=== PATIENT | male | born 1945 | race Caucasian/White ===

== ENCOUNTER 2016-09-03 11:48 | Inpatient (IN) ==
[2016-09-03] MEDS ORDERED: Acetaminophen 325 MG TABLET PO PRN (13:24)
[2016-09-03] MEDS ORDERED: Gabapentin 300 MG CAPSULE PO PRN (13:24)
[2016-09-03] MEDS ORDERED: Dextrose Gel 15 GM PO PRN ×2 (15:40)
[2016-09-03] MEDS: *HR* OxyCODONE/APAP 5/325 TABLET PO PRN ×2 (15:45→22:39)
[2016-09-03] MEDS ORDERED: Gentamicin OPTH Soln 5 ML BOTTLE RIGHT EYE SCH (17:00)
[2016-09-03] MEDS ORDERED: PRAVASTATIN SODIUM 10 MG PO SCH (21:00)
[2016-09-03] MEDS: *HR* GlyBURIDE 5 MG TABLET PO SCH (22:24)
[2016-09-03] MEDS: Cefdinir 300 MG CAPSULE PO SCH (22:25)
[2016-09-03] MEDS: Insulin DETEMIR 100 UNIT/ML X5UNITS SQ SCH (22:28)
[2016-09-04 06:56] LABS: Basophils % 0.7 %; Eosinophils # 0.3 K/mcL (0.0-0.6); Eosinophils % 4.9 %; Hematocrit 27.1 % (37.5-50.1); Hemoglobin 8.7 g/dL (12.9-16.9); Immature Granulocytes % 1.4 % (0-4); Lymphocytes # 0.9 K/mcL (0.6-4.6); Lymphocytes % 15.9 %; Mean Corpuscular HGB Conc 32.1 g/dL (31.6-35.5); Mean Corpuscular Hemoglobin 28.5 pg (28.0-33.3); Mean Corpuscular Volume 88.9 fL (83.0-100.0); Mean Platelet Volume 8.9 fL (9.4-12.4); Monocytes # 0.7 K/mcL (0.0-1.3); Monocytes % 11.6 %; Neutrophils # 3.7 K/mcL (1.6-8.9); Platelet Count 103 K/mcL (140-400); Red Blood Count 3.05 M/mcL (4.19-5.50); Red Cell Distribution Width 13.9 % (11.5-14.5); Segmented Neutrophils % 65.5 %
[2016-09-04 07:06] LABS: INR 1.4; Prothrombin Time 15.3 Seconds (9.4-12.1)
[2016-09-04 07:08] LABS: Calcium 8.3 mg/dL (8.6-10.8); Potassium 4.2 mEq/L (3.5-4.5)
[2016-09-04 07:09] LABS: Activated Partial Thrombo Time 26.7 Seconds (26.0-36.0)
[2016-09-04] MEDS ORDERED: Furosemide 20 MG TABLET PO SCH ×2 (09:00→12:33)
[2016-09-04] MEDS ORDERED: Thiamine (B-1) 100 MG TABLET PO SCH (09:00)
[2016-09-04] MEDS: Cefdinir 300 MG CAPSULE PO SCH (09:29)
[2016-09-04] MEDS: Isosorbide MONOnitrate (24 HR) 30 MG TAB.ER.24H PO SCH (09:29)
[2016-09-04] MEDS: *HR* GlyBURIDE 5 MG TABLET PO SCH ×2 (09:30→19:48)
[2016-09-04] MEDS ORDERED: Albuterol 2.5 MG/3 ML NEBULIZER IH PRN (11:39)
--- NOTE | 2016-09-04 12:14 | Internal Med History&Physical ---
Date of Encounter: 09/04/16 Time of Encounter: 11:40 Assessment and Plan (1) Status post hernia repair Current visit: No Status: Acute Continue postop orders as at present. (2) Zinc deficiency Current visit: No Status: Acute We will check zinc level in a.m. (3) Anemia Current visit: No Status: Chronic Anemia testing done 08/09/2016 showed no factor deficiency. Qualifiers: Anemia type: B12 deficiency Vitamin B12 deficiency anemia type: unspecified B12 deficiency Qualified Code(s): D51.9 - Vitamin B12 deficiency anemia, unspecified (4) CKD (chronic kidney disease) stage 4, GFR 15-29 ml/min Current visit: No Status: Chronic Will monitor renal indices. (5) Gout Current visit: No Status: Chronic Uric acid level was elevated at 13.7 on 08/15/2016. Allopurinol was not ordered on discharge to [facility] swing bed. I will restart this Qualifiers: Gout site: unspecified site Gout etiology: unspecified cause Chronicity: chronic Presence of tophus: without tophus Qualified Code(s): M1A.9XX0 - Chronic gout, unspecified, without tophus (tophi) (6) Hypothyroid Current visit: No Status: Chronic TSH was normal at 1.999 on 03/31/2016. Continue Synthroid Qualifiers: Hypothyroidism type: unspecified Qualified Code(s): E03.9 - Hypothyroidism , unspecified (7) DM type 2 (diabetes mellitus, type 2) Current visit: No Status: Acute Hemoglobin A1c was 6.2% on 08/15/2016. Continue Levemir and glyburide. Qualifiers: Diabetes mellitus complication status: with kidney complications Diabetes mellitus complication detail: with chronic kidney disease Diabetes mellitus collar fuser insulin use: unspecified fci insulin use status Chronic kidney disease stage: stage 4 (severe) Qualified Code(s): E11.22 - Type 2 diabetes mellitus with diabetic chronic kidney disease; N18.4 - Chronic kidney disease, stage 4 (severe) Internal Medicine - H&P: HPI Chief complaint: Postop recovery Admitted From: Hospital to Hospital Transfer Plans for Post Hospital Care: Home History of present illness: Mr. Rivers is a 71 year old male who was hospitalized at [facility] August 29- after presenting to the emergency room there with complaints of increased testicular and scrotal swelling. He had undergone robotic inguinal hernia repair surgery by Dr. Tidwell on August 24. Dr. Tidwell was consulted but did not think there was significant surgical complications. The patient was admitted to [facility] for altered mental status and pain management. His mental status and swelling improved and he was transferred to [facility] swing bed for ongoing care needs. Past Med Surg Social Fam HX - Past Medical History Medical history: atrial fibrillation, cancer, CHF, CVA, diabetes, hyperlipidemia , hypertension, myocardial infarction, renal disease, other Psychiatric history: no psych history - Past Surgical History Surgical History: coronary bypass (CABG), other, pacemaker - Social History Smoking Status: Former smoker Smokeless Tobacco Status: No Alcohol use: none Drug use: none - Family History Father Living Status: Internal Medicine - H&P: Meds GlyBURIDE 5 mg PO BID 07/06/15 [History] Isosorbide MONOnitrate (24 HR) [Imdur] 30 mg PO DAILY 07/06/15 [History] Levothyroxine [Synthroid] 88 mcg PO DAILY 07/06/15 [History] Docusate Sodium [Dok] 100 mg PO BID PRN 03/27/16 [History] Insulin Glargine,Hum.rec.anlog [Lantus Solostar] 40 unit SQ HS PRN 03/27/16 [ History] Gabapentin [Neurontin] 300 mg PO TID PRN 06/15/16 [History] Pravastatin Sodium 10 mg PO HS 06/15/16 [History] Carvedilol 12.5 mg PO QDPC 08/24/16 [History] Furosemide [Lasix] 20 mg PO QAM 08/24/16 [History] Acetaminophen [Tylenol] 650 mg PO Q6HR PRN #0 tablet 09/03/16 [Rx] Cefdinir [Omnicef] 300 mg PO BID #8 capsule 09/03/16 [Rx] Gentamicin OPTH Soln 1 drop RIGHT EYE QID bottle 09/03/16 [Rx] Metolazone 2.5 mg PO DAILY 09/03/16 [History] OxyCODONE/APAP 5/325 [Percocet 5/325 MG] 1 tab PO Q6HR PRN #8 tablet 09/03/16 [ Rx] Thiamine (B-1) [Vitamin B-1] 100 mg PO DAILY tablet 09/03/16 [Rx] Allergies Filxdji-Nwf-Lvk Reductase Inhibitor [Statins] Adverse Reaction (Verified 12:55) Muscle Pain All Systems PM: A 10-system review of systems was performed and is negative for pertinent findings except as documented above in the HPI. Review of systems: Review of systems from his March 2016 [facility] swing bed stay were reviewed and revised as below. Gen.: His weight has been stable the past few months per his 's report. The variants in weight record is probably erroneous Cardiovascular: He has history of hypertension. He has known ASHD and had multivessel CABG surgery done 2001 [facility]. He has had several MIs in the past with most recent one being 2011. He had a pacemaker placed in 2011 for uncertain diagnosis. An echocardiogram done February 2014 showed LVEF 55%. There was indeterminate diastolic function. There was elevated RVSP estimated at 51 mmHg. He has not had known DVT or pulmonary emboli. Respiratory: He is a lifelong nonsmoker has no known chronic lung disease GI: Denies disorders of his liver gallbladder or exocrine pancreas. His denies a diagnosis of cirrhosis despite CT findings as documented above. : He has chronic kidney disease and follows with Dr. Ivan at [facility]. He had right nephrectomy in 2010 for renal cancer. He is presumed cancer free. He had recent inguinal hernia surgery as per history of present illness. Neurologic: He had a CVA March 2009 with minimal residual deficit. 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 He has diabetic peripheral neuropathy Endocrine: He was diagnosed with DM 2 approximately 2000. He has hypothyroidism Hematology/oncology: He had right nephrectomy in 2010. He has anemia and thrombocytopenia. He had low B12 level on 03/28/2016 labs at 203 PG/mL. Psychiatric: He has no known anxiety depression or other mental health issues Musk skeletal: He has history of gout. Allopurinol was not ordered on discharge to swing bed - Constitutional Vitals: Temp Pulse Resp BP Pulse Ox 99.2 F 61 18 117/54 97 09/04/16 06:39 09/04/16 06:39 09/04/16 06:39 09/04/16 06:39 09/04/16 06:39 Exam: General: He is a well-developed well-nourished male lying in bed who appears in minimal distress at present time HEENT: Head is atraumatic and normocephalic. Eyes: EOMI. There is no scleral icterus. Mouth: Mucosa is moist Neck: Supple and nontender. There is no thyromegaly or adenopathy noted. Heart: Regular without murmurs gallops or ectopics. Lungs: No wheezes or crackles are heard. Abdomen: Soft and nontender. He has healing incisions from recent abdominal surgery. No masses or guarding are noted. Back: He has significant ecchymosis from blood dissection along tissue planes from recent surgical intervention. Extremities: He has extension of ecchymosis into the right upper thigh to a minimal extent. There is scrotal and penile edema. Winston catheter is in place. He has trace edema of his feet. Dorsalis pedis and posterior tibial pulses are trace palpable bilaterally. His feet are warm to touch. Neurologic: Mental status: He is talkative and a fair to good historian. Cranial nerves: Smile is symmetric. Forehead wrinkles bilaterally. Tongue protrudes midline. EOMI. Motor: There is no pronator drift. Cerebellar: Finger to nose is intact bilaterally. Skin: Warm and dry Internal Med - H&P Results - Labs CBC & Chem 7: 09/04/16 06:36 09/04/16 06:36 Labs: Short CBC 09/04/16 Range/Units 06:36 WBC 5.7 (4.3-11.1) K/mcL Hgb 8.7 L (12.9-16.9) g/dL Hct 27.1 L (37.5-50.1) % Plt Count 103 L (140-400) K/mcL Neutrophils # 3.7 (1.6-8.9) K/mcL BMP 09/04/16 06:36 Sodium 138 Potassium 4.2 Chloride 111 H Carbon Dioxide 17 L BUN 77 H Creatinine 2.07 H Glucose 54 L Calcium 8.3 L
[2016-09-04] MEDS: *HR* OxyCODONE/APAP 5/325 TABLET PO PRN (19:19)
[2016-09-04] MEDS: PRAVASTATIN SODIUM 10 MG PO SCH (19:48)
[2016-09-04] MEDS: Insulin DETEMIR 100 UNIT/ML X5UNITS SQ SCH (21:33)
[2016-09-05 05:14] LABS: Magnesium 2.4 mg/dL (1.6-2.6); Uric Acid 11.9 mg/dL (3.5-7.2)
[2016-09-05] MEDS: *HR* OxyCODONE/APAP 5/325 TABLET PO PRN ×3 (05:59→20:11)
[2016-09-05] MEDS ORDERED: Cefdinir 300 MG CAPSULE PO SCH (09:00)
[2016-09-05] MEDS: Isosorbide MONOnitrate (24 HR) 30 MG TAB.ER.24H PO SCH (09:12)
[2016-09-05] MEDS: *HR* GlyBURIDE 5 MG TABLET PO SCH (09:13)
--- NOTE | 2016-09-05 17:18 | Internal Med Progress Note ---
Date of Encounter: 09/05/16 Time of Encounter: 17:05 - Assessment and plan (1) Status post hernia repair Current Visit: No Status: Acute Assessment and plan: September 05. Continue postop care (2) Zinc deficiency Current Visit: No Status: Acute Assessment and plan: September 05. Zinc level is pending (3) Anemia Current Visit: No Status: Chronic Assessment and plan: September 05. Anemia testing done 08/09/2016 showed no factor deficiency. We will monitor CBC Qualifiers: Anemia type: B12 deficiency Vitamin B12 deficiency anemia type: unspecified B12 deficiency Qualified Code(s): D51.9 - Vitamin B12 deficiency anemia, unspecified (4) CKD (chronic kidney disease) stage 4, GFR 15-29 ml/min Current Visit: No Status: Chronic Assessment and plan: September 05. Will monitor renal indices. (5) Gout Current Visit: No Status: Chronic Assessment and plan: September 05. Uric acid level returned elevated at 11.9. Continue allopurinol. Qualifiers: Gout site: unspecified site Gout etiology: unspecified cause Chronicity: chronic Presence of tophus: without tophus Qualified Code(s): M1A.9XX0 - Chronic gout, unspecified, without tophus (tophi) (6) Hypothyroid Current Visit: No Status: Chronic Assessment and plan: September 05. TSH was normal at 1.999 on 03/31/2016. Continue Synthroid Qualifiers: Hypothyroidism type: unspecified Qualified Code(s): E03.9 - Hypothyroidism , unspecified (7) DM type 2 (diabetes mellitus, type 2) Current Visit: No Status: Acute Assessment and plan: September 05. Hemoglobin A1c was 6.2% on 08/15/2016. He had hypoglycemia last night. I will decrease glyburide. Continue Levemir and Accu-Cheks with SSI Qualifiers: Diabetes mellitus complication status: with kidney complications Diabetes mellitus complication detail: with chronic kidney disease Diabetes mellitus alf insulin use: unspecified alf insulin use status Chronic kidney disease stage: stage 4 (severe) Qualified Code(s): E11.22 - Type 2 diabetes mellitus with diabetic chronic kidney disease; N18.4 - Chronic kidney disease, stage 4 (severe) - Subjective Interval history: September 05. He has no new complaints and feels better overall. - Constitutional Vitals: Temp Pulse Resp BP Pulse Ox 98.6 F 60 18 115/65 100 09/05/16 07:01 09/05/16 13:38 09/05/16 13:38 09/05/16 13:38 09/05/16 13:38 Exam: He is sitting in a chair and appears to be resting comfortably. His extremities show 1+ edema bilaterally. His scrotum and penis swelling is lessened. There is no significant drainage around the Winston. I reviewed his medications and lab results. Internal Medicine: Result - Labs CBC & Chem 7: 09/04/16 06:36 09/04/16 06:36 - ABG Interpretation ABG results: PT/INR, D-dimer PT 15.3 Seconds (9.4-12.1) H 09/04/16 06:36 Consult Discharge Plan - Plan Referrals: NO,PCP [Primary Care Provider] - 1 week
[2016-09-05] MEDS ORDERED: Insulin DETEMIR 100 UNIT/ML X5UNITS SQ SCH ×2 (17:24→21:00)
[2016-09-05] MEDS: PRAVASTATIN SODIUM 10 MG PO SCH (20:15)
[2016-09-06] MEDS: *HR* OxyCODONE/APAP 5/325 TABLET PO PRN ×2 (02:39→21:17)
[2016-09-06 06:07] LABS: Basophils % 0.4 %; Eosinophils # 0.4 K/mcL (0.0-0.6); Hematocrit 25.6 % (37.5-50.1); Hemoglobin 8.5 g/dL (12.9-16.9); Lymphocytes # 1.1 K/mcL (0.6-4.6); Lymphocytes % 15.7 %; Mean Corpuscular HGB Conc 33.2 g/dL (31.6-35.5); Mean Corpuscular Hemoglobin 29.2 pg (28.0-33.3); Mean Platelet Volume 9.4 fL (9.4-12.4); Monocytes # 0.9 K/mcL (0.0-1.3); Monocytes % 12.9 %; Neutrophils # 4.4 K/mcL (1.6-8.9); Platelet Count 112 K/mcL (140-400); Red Blood Count 2.91 M/mcL (4.19-5.50); Red Cell Distribution Width 13.8 % (11.5-14.5)
[2016-09-06 06:19] LABS: Calcium 8.2 mg/dL (8.6-10.8); Potassium 4.4 mEq/L (3.5-4.5)
[2016-09-06] MEDS: *HR* Dextrose 50 % in Water (Syg) 50 ML SYRINGE IVP PRN ×2 (06:26→18:26)
[2016-09-06] MEDS ORDERED: *HR* GlyBURIDE 5 MG TABLET PO SCH (09:00)
[2016-09-06] MEDS: Isosorbide MONOnitrate (24 HR) 30 MG TAB.ER.24H PO SCH (10:03)
[2016-09-06] MEDS: Furosemide 20 MG TABLET PO SCH (10:03)
[2016-09-06] MEDS: Insulin LISPRO 300 UNITS/3 ML VIAL SQ SCH ×2 (15:40→21:18)
--- NOTE | 2016-09-06 18:40 | Internal Med Progress Note ---
Date of Encounter: 09/06/16 Time of Encounter: 18:30 - Assessment and plan (1) Status post hernia repair Current Visit: No Status: Acute Assessment and plan: September 05. Continue postop care (2) Zinc deficiency Current Visit: No Status: Acute Assessment and plan: September 05. Zinc level is pending (3) Anemia Current Visit: No Status: Chronic Assessment and plan: September 05. Anemia testing done 08/09/2016 showed no factor deficiency. We will monitor CBC September 06. Hemoglobin stable at 8.5 today. Qualifiers: Anemia type: B12 deficiency Vitamin B12 deficiency anemia type: unspecified B12 deficiency Qualified Code(s): D51.9 - Vitamin B12 deficiency anemia, unspecified (4) CKD (chronic kidney disease) stage 4, GFR 15-29 ml/min Current Visit: No Status: Chronic Assessment and plan: September 05. Will monitor renal indices. September 06. Creatinine stable at 2.14 today. (5) Gout Current Visit: No Status: Chronic Assessment and plan: September 05. Uric acid level returned elevated at 11.9. Continue allopurinol. September 06. Continue allopurinol Qualifiers: Gout site: unspecified site Gout etiology: unspecified cause Chronicity: chronic Presence of tophus: without tophus Qualified Code(s): M1A.9XX0 - Chronic gout, unspecified, without tophus (tophi) (6) Hypothyroid Current Visit: No Status: Chronic Assessment and plan: September 05. TSH was normal at 1.999 on 03/31/2016. Continue Synthroid Qualifiers: Hypothyroidism type: unspecified Qualified Code(s): E03.9 - Hypothyroidism , unspecified (7) DM type 2 (diabetes mellitus, type 2) Current Visit: No Status: Acute Assessment and plan: September 05. Hemoglobin A1c was 6.2% on 08/15/2016. He had hypoglycemia last night. I will decrease glyburide. Continue Levemir and Accu-Cheks with SSI September 06. Levemir and glyburide have been discontinued because of hypoglycemia last night and today. We will do Accu-Cheks with SSI. Qualifiers: Diabetes mellitus complication status: with kidney complications Diabetes mellitus complication detail: with chronic kidney disease Diabetes mellitus manager intermediate insulin use: unspecified chcf insulin use status Chronic kidney disease stage: stage 4 (severe) Qualified Code(s): E11.22 - Type 2 diabetes mellitus with diabetic chronic kidney disease; N18.4 - Chronic kidney disease, stage 4 (severe) - Subjective Interval history: September 05. He has no new complaints and feels better overall. September 06. He has no complaints at present. His blood sugar dropped last night despite discontinuation of the PM dose of glyburide and reduction of his Levemir yesterday. - Constitutional Vitals: Temp Pulse Resp BP Pulse Ox 98.0 F 60 16 112/60 99 09/06/16 07:18 09/06/16 13:59 09/06/16 13:59 09/06/16 13:59 09/06/16 13:59 Exam: He is resting comfortably in bed. He is appropriate in conversation. He has trace edema of the right leg and 1+ edema of the left leg. I reviewed his medications, lab results, and blood sugars Internal Medicine: Result - Labs CBC & Chem 7: 09/06/16 04:50 09/06/16 04:50 Labs: Short CBC 09/06/16 Range/Units 04:50 WBC 6.9 (4.3-11.1) K/mcL Hgb 8.5 L (12.9-16.9) g/dL Hct 25.6 L (37.5-50.1) % Plt Count 112 L (140-400) K/mcL Neutrophils # 4.4 (1.6-8.9) K/mcL BMP 09/06/16 04:50 Sodium 137 Potassium 4.4 Chloride 109 Carbon Dioxide 18 L BUN 79 H Creatinine 2.14 H Glucose 26 L* Calcium 8.2 L - ABG Interpretation ABG results: PT/INR, D-dimer PT 15.3 Seconds (9.4-12.1) H 09/04/16 06:36 Consult Discharge Plan - Plan Referrals: NO,PCP [Primary Care Provider] - 1 week
[2016-09-06] MEDS: PRAVASTATIN SODIUM 10 MG PO SCH (21:18)
[2016-09-07] MEDS: *HR* Dextrose 50 % in Water (Syg) 50 ML SYRINGE IVP PRN ×4 (01:39→12:01)
[2016-09-07] MEDS: Insulin LISPRO 300 UNITS/3 ML VIAL SQ SCH ×4 (08:00→20:45)
[2016-09-07] MEDS: Furosemide 20 MG TABLET PO SCH (08:26)
[2016-09-07] MEDS: Isosorbide MONOnitrate (24 HR) 30 MG TAB.ER.24H PO SCH (08:26)
[2016-09-07] MEDS: D5% in Water 1,000 ML IV PRN ×2 (08:28→23:07)
--- NOTE | 2016-09-07 15:12 | Internal Med Progress Note ---
Date of Encounter: 09/07/16 Time of Encounter: 15:00 - Assessment and plan (1) Status post hernia repair Current Visit: No Status: Acute Assessment and plan: September 05. Continue postop care September 07. We will remove Winston as per above (2) Zinc deficiency Current Visit: No Status: Acute Assessment and plan: September 05. Zinc level is pending September 07. Zinc level returned normal at 63. (3) Anemia Current Visit: No Status: Chronic Assessment and plan: September 05. Anemia testing done 08/09/2016 showed no factor deficiency. We will monitor CBC September 06. Hemoglobin stable at 8.5 today. Qualifiers: Anemia type: B12 deficiency Vitamin B12 deficiency anemia type: unspecified B12 deficiency Qualified Code(s): D51.9 - Vitamin B12 deficiency anemia, unspecified (4) CKD (chronic kidney disease) stage 4, GFR 15-29 ml/min Current Visit: No Status: Chronic Assessment and plan: September 05. Will monitor renal indices. September 06. Creatinine stable at 2.14 today. (5) Gout Current Visit: No Status: Chronic Assessment and plan: September 05. Uric acid level returned elevated at 11.9. Continue allopurinol. September 06. Continue allopurinol Qualifiers: Gout site: unspecified site Gout etiology: unspecified cause Chronicity: chronic Presence of tophus: without tophus Qualified Code(s): M1A.9XX0 - Chronic gout, unspecified, without tophus (tophi) (6) Hypothyroid Current Visit: No Status: Chronic Assessment and plan: September 05. TSH was normal at 1.999 on 03/31/2016. Continue Synthroid Qualifiers: Hypothyroidism type: unspecified Qualified Code(s): E03.9 - Hypothyroidism , unspecified (7) DM type 2 (diabetes mellitus, type 2) Current Visit: No Status: Acute Assessment and plan: September 05. Hemoglobin A1c was 6.2% on 08/15/2016. He had hypoglycemia last night. I will decrease glyburide. Continue Levemir and Accu-Cheks with SSI September 06. Levemir and glyburide have been discontinued because of hypoglycemia last night and today. We will do Accu-Cheks with SSI. September 07. Remain off Levemir and glyburide and continue Accu-Cheks with SSI. Qualifiers: Diabetes mellitus complication status: with kidney complications Diabetes mellitus complication detail: with chronic kidney disease Diabetes mellitus technician terminal and repeater insulin use: unspecified usp insulin use status Chronic kidney disease stage: stage 4 (severe) Qualified Code(s): E11.22 - Type 2 diabetes mellitus with diabetic chronic kidney disease; N18.4 - Chronic kidney disease, stage 4 (severe) - Subjective Interval history: September 05. He has no new complaints and feels better overall. September 06. He has no complaints at present. His blood sugar dropped last night despite discontinuation of the PM dose of glyburide and reduction of his Levemir yesterday. September 07. He has no new complaints. Blood sugar dropped again last evening despite discontinuation of glyburide and Levemir. It has risen to acceptable levels with repeat use of D50 IV - Constitutional Vitals: Temp Pulse Resp BP Pulse Ox 97.5 F L 60 18 103/47 97 09/07/16 06:00 09/07/16 14:26 09/07/16 14:26 09/07/16 14:26 09/07/16 14:26 Exam: He is resting comfortably in bed. The edema of his lower legs is unchanged. He still has moderate scrotal discoloration with edema. I believe there is sufficiently decreased edema in his penis to attempt Winston catheter removal. Reviewed his medications and lab results. Internal Medicine: Result - Labs CBC & Chem 7: 09/06/16 04:50 09/06/16 04:50 - ABG Interpretation ABG results: PT/INR, D-dimer PT 15.3 Seconds (9.4-12.1) H 09/04/16 06:36 Consult Discharge Plan - Plan Referrals: NO,PCP [Primary Care Provider] - 1 week
[2016-09-07] MEDS: PRAVASTATIN SODIUM 10 MG PO SCH (20:46)
[2016-09-08] MEDS: *HR* OxyCODONE/APAP 5/325 TABLET PO PRN (00:27)
[2016-09-08 00:31] LABS: Bilirubin,Urine Negative (Negative); Blood,Urine Moderate (Negative); Clarity,Urine Clear (Clear); Color,Urine Yellow (Yellow); Glucose,Urine (UA) Normal (Normal); Ketones,Urine Negative (Negative); Leukocyte Esterase,Urine Small (Negative); Nitrite,Urine Negative (Negative); Protein,Urine Trace mg/dL (Neg-Trace); Urobilinogen,Urine Normal (Normal)
[2016-09-08 00:44] LABS: Bacteria,Urine Few per hpf (None-Few); Squamous Epithelial Cell,Urine Moderate per lpf (None-Few); WBC,Urine 15-30 per hpf (0-3)
[2016-09-08 00:45] LABS: Yeast,Urine Present per hpf (None Seen)
[2016-09-08] MEDS: Insulin LISPRO 300 UNITS/3 ML VIAL SQ SCH ×4 (07:09→22:08)
[2016-09-08] MEDS: Furosemide 20 MG TABLET PO SCH (10:02)
[2016-09-08] MEDS: Isosorbide MONOnitrate (24 HR) 60 MG TAB.ER.24H PO SCH (10:02)
[2016-09-08] MEDS: PRAVASTATIN SODIUM 10 MG PO SCH (22:08)
[2016-09-09] MEDS: *HR* OxyCODONE/APAP 5/325 TABLET PO PRN (02:14)
[2016-09-09] MEDS: Furosemide 20 MG TABLET PO SCH (09:07)
[2016-09-09] MEDS: Insulin LISPRO 300 UNITS/3 ML VIAL SQ SCH ×3 (09:09→17:27)
[2016-09-09] MEDS: Isosorbide MONOnitrate (24 HR) 60 MG TAB.ER.24H PO SCH (09:10)
--- NOTE | 2016-09-09 14:29 | Internal Med Progress Note ---
Date of Encounter: 09/09/16 Time of Encounter: 14:20 - Assessment and plan (1) Status post hernia repair Current Visit: No Status: Acute Assessment and plan: September 05. Continue postop care September 07. We will remove Winston as per above September 09. We will remove Winston (2) Anemia Current Visit: No Status: Chronic Assessment and plan: September 05. Anemia testing done 08/09/2016 showed no factor deficiency. We will monitor CBC September 06. Hemoglobin stable at 8.5 today. September 09. Recheck CBC in a.m. Qualifiers: Anemia type: B12 deficiency Vitamin B12 deficiency anemia type: unspecified B12 deficiency Qualified Code(s): D51.9 - Vitamin B12 deficiency anemia, unspecified (3) CKD (chronic kidney disease) stage 4, GFR 15-29 ml/min Current Visit: No Status: Chronic Assessment and plan: September 05. Will monitor renal indices. September 06. Creatinine stable at 2.14 today. September 09. Recheck chemistries in a.m. (4) Gout Current Visit: No Status: Chronic Assessment and plan: September 05. Uric acid level returned elevated at 11.9. Continue allopurinol. September 06. Continue allopurinol Qualifiers: Gout site: unspecified site Gout etiology: unspecified cause Chronicity: chronic Presence of tophus: without tophus Qualified Code(s): M1A.9XX0 - Chronic gout, unspecified, without tophus (tophi) (5) Hypothyroid Current Visit: No Status: Chronic Assessment and plan: September 05. TSH was normal at 1.999 on 03/31/2016. Continue Synthroid Qualifiers: Hypothyroidism type: unspecified Qualified Code(s): E03.9 - Hypothyroidism , unspecified (6) DM type 2 (diabetes mellitus, type 2) Current Visit: No Status: Acute Assessment and plan: September 05. Hemoglobin A1c was 6.2% on 08/15/2016. He had hypoglycemia last night. I will decrease glyburide. Continue Levemir and Accu-Cheks with SSI September 06. Levemir and glyburide have been discontinued because of hypoglycemia last night and today. We will do Accu-Cheks with SSI. September 07. Remain off Levemir and glyburide and continue Accu-Cheks with SSI. September 09. Blood sugars have normalized. Continue Accu-Cheks with SSI Qualifiers: Diabetes mellitus complication status: with kidney complications Diabetes mellitus complication detail: with chronic kidney disease Diabetes mellitus jail insulin use: unspecified jail insulin use status Chronic kidney disease stage: stage 4 (severe) Qualified Code(s): E11.22 - Type 2 diabetes mellitus with diabetic chronic kidney disease; N18.4 - Chronic kidney disease, stage 4 (severe) - Subjective Interval history: September 05. He has no new complaints and feels better overall. September 06. He has no complaints at present. His blood sugar dropped last night despite discontinuation of the PM dose of glyburide and reduction of his Levemir yesterday. September 07. He has no new complaints. Blood sugar dropped again last evening despite discontinuation of glyburide and Levemir. It has risen to acceptable levels with repeat use of D50 IV September 09. He has no new complaints. Blood sugar has returned normal range off Levemir glyburide. I had another discussion with the patient and his about the Winston catheter. They agree it can be removed - Constitutional Vitals: Temp Pulse Resp BP Pulse Ox 97.7 F 60 16 123/54 100 09/09/16 06:47 09/09/16 13:41 09/09/16 13:41 09/09/16 13:41 09/09/16 13:41 Internal Medicine: Result - Labs CBC & Chem 7: 09/06/16 04:50 09/06/16 04:50 - ABG Interpretation ABG results: PT/INR, D-dimer PT 15.3 Seconds (9.4-12.1) H 09/04/16 06:36 Consult Discharge Plan - Plan Referrals: NO,PCP [Primary Care Provider] - 1 week
[2016-09-10] MEDS: Insulin LISPRO 300 UNITS/3 ML VIAL SQ SCH ×4 (00:21→17:01)
[2016-09-10] MEDS: PRAVASTATIN SODIUM 10 MG PO SCH (00:23)
[2016-09-10] MEDS: Ondansetron ODT 4 MG TAB.RAPDIS SL PRN (01:56)
[2016-09-10 05:54] LABS: Basophils % 0.5 %; Eosinophils # 0.2 K/mcL (0.0-0.6); Eosinophils % 3.7 %; Hematocrit 26.3 % (37.5-50.1); Hemoglobin 8.5 g/dL (12.9-16.9); Immature Granulocytes % 0.8 % (0-4); Lymphocytes # 0.8 K/mcL (0.6-4.6); Lymphocytes % 13.1 %; Mean Corpuscular HGB Conc 32.3 g/dL (31.6-35.5); Mean Corpuscular Hemoglobin 28.5 pg (28.0-33.3); Mean Corpuscular Volume 88.3 fL (83.0-100.0); Monocytes # 0.7 K/mcL (0.0-1.3); Neutrophils # 4.4 K/mcL (1.6-8.9); Platelet Count 109 K/mcL (140-400); Red Blood Count 2.98 M/mcL (4.19-5.50); Red Cell Distribution Width 13.6 % (11.5-14.5); Segmented Neutrophils % 70.9 %
[2016-09-10 05:58] LABS: Calcium 8.8 mg/dL (8.6-10.8); Potassium 4.9 mEq/L (3.5-4.5)
[2016-09-10] MEDS: Isosorbide MONOnitrate (24 HR) 60 MG TAB.ER.24H PO SCH (09:04)
[2016-09-10] MEDS: Furosemide 20 MG TABLET PO SCH (09:05)
[2016-09-11] MEDS: Insulin LISPRO 300 UNITS/3 ML VIAL SQ SCH ×4 (00:05→22:04)
[2016-09-11] MEDS: PRAVASTATIN SODIUM 10 MG PO SCH ×2 (00:08→22:04)
[2016-09-11] MEDS: Isosorbide MONOnitrate (24 HR) 60 MG TAB.ER.24H PO SCH (08:34)
[2016-09-11] MEDS: Furosemide 20 MG TABLET PO SCH (08:34)
--- NOTE | 2016-09-11 11:27 | Internal Med Progress Note ---
Date of Encounter: 09/11/16 Time of Encounter: 11:05 - Assessment and plan (1) Status post hernia repair Current Visit: No Status: Acute Assessment and plan: September 05. Continue postop care September 07. We will remove Winston as per above September 09. We will remove Winston (2) Anemia Current Visit: No Status: Chronic Assessment and plan: September 05. Anemia testing done 08/09/2016 showed no factor deficiency. We will monitor CBC September 06. Hemoglobin stable at 8.5 today. September 09. Recheck CBC in a.m. September 11. Hemoglobin was stable at 8.5 on September 10. Continue present management Qualifiers: Anemia type: B12 deficiency Vitamin B12 deficiency anemia type: unspecified B12 deficiency Qualified Code(s): D51.9 - Vitamin B12 deficiency anemia, unspecified (3) CKD (chronic kidney disease) stage 4, GFR 15-29 ml/min Current Visit: No Status: Chronic Assessment and plan: September 05. Will monitor renal indices. September 06. Creatinine stable at 2.14 today. September 09. Recheck chemistries in a.m. September 11. Renal indices were stable September 10. Continue present management (4) Gout Current Visit: No Status: Chronic Assessment and plan: September 05. Uric acid level returned elevated at 11.9. Continue allopurinol. September 06. Continue allopurinol Qualifiers: Gout site: unspecified site Gout etiology: unspecified cause Chronicity: chronic Presence of tophus: without tophus Qualified Code(s): M1A.9XX0 - Chronic gout, unspecified, without tophus (tophi) (5) Hypothyroid Current Visit: No Status: Chronic Assessment and plan: September 05. TSH was normal at 1.999 on 03/31/2016. Continue Synthroid Qualifiers: Hypothyroidism type: unspecified Qualified Code(s): E03.9 - Hypothyroidism , unspecified (6) DM type 2 (diabetes mellitus, type 2) Current Visit: No Status: Acute Assessment and plan: September 05. Hemoglobin A1c was 6.2% on 08/15/2016. He had hypoglycemia last night. I will decrease glyburide. Continue Levemir and Accu-Cheks with SSI September 06. Levemir and glyburide have been discontinued because of hypoglycemia last night and today. We will do Accu-Cheks with SSI. September 07. Remain off Levemir and glyburide and continue Accu-Cheks with SSI. September 09. Blood sugars have normalized. Continue Accu-Cheks with SSI Qualifiers: Diabetes mellitus complication status: with kidney complications Diabetes mellitus complication detail: with chronic kidney disease Diabetes mellitus snf insulin use: unspecified snf insulin use status Chronic kidney disease stage: stage 4 (severe) Qualified Code(s): E11.22 - Type 2 diabetes mellitus with diabetic chronic kidney disease; N18.4 - Chronic kidney disease, stage 4 (severe) - Subjective Interval history: September 05. He has no new complaints and feels better overall. September 06. He has no complaints at present. His blood sugar dropped last night despite discontinuation of the PM dose of glyburide and reduction of his Levemir yesterday. September 07. He has no new complaints. Blood sugar dropped again last evening despite discontinuation of glyburide and Levemir. It has risen to acceptable levels with repeat use of D50 IV September 09. He has no new complaints. Blood sugar has returned normal range off Levemir glyburide. I had another discussion with the patient and his about the Winston catheter. They agree it can be removed September 11. He has no new complaints except some "breaking out" on his feet. reports that neither she nor the nurse can visualize any rash. He complains of mild pain in his feet. His Winston catheter was discontinued on September 09 and he has voided satisfactorily. - Constitutional Vitals: Temp Pulse Resp BP Pulse Ox 97.2 F L 62 16 112/67 97 09/11/16 06:36 09/11/16 06:36 09/11/16 06:36 09/11/16 06:36 09/11/16 09:58 Exam: He is sitting in a chair and appears to be resting comfortably. He has no visible rash on his lower legs. He has mild tenderness to palpation of the right forefoot. He has dependent edema in the calves of both legs. There is no anterior tibial edema. His affect is bright and cheerful. He is appropriate in conversation. I reviewed his medications and lab results. Internal Medicine: Result - Labs CBC & Chem 7: 09/10/16 05:08 09/10/16 05:08 - ABG Interpretation ABG results: PT/INR, D-dimer PT 15.3 Seconds (9.4-12.1) H 09/04/16 06:36 - VTE Documentation of Mechanical Device: Graduated compression elastic hosiery Consult Discharge Plan - Plan Referrals: NO,PCP [Primary Care Provider] - 1 week
[2016-09-12] MEDS: Insulin LISPRO 300 UNITS/3 ML VIAL SQ SCH ×4 (08:50→21:47)
[2016-09-12] MEDS: Furosemide 20 MG TABLET PO SCH (08:50)
[2016-09-12] MEDS: Isosorbide MONOnitrate (24 HR) 60 MG TAB.ER.24H PO SCH (08:50)
[2016-09-12] MEDS: Ondansetron ODT 4 MG TAB.RAPDIS SL PRN (16:59)
[2016-09-12] MEDS: PRAVASTATIN SODIUM 10 MG PO SCH (21:41)
[2016-09-13] MEDS: Ondansetron ODT 4 MG TAB.RAPDIS SL PRN (03:22)
[2016-09-13] MEDS: Insulin LISPRO 300 UNITS/3 ML VIAL SQ SCH ×2 (08:20→12:05)
[2016-09-13] MEDS: Isosorbide MONOnitrate (24 HR) 60 MG TAB.ER.24H PO SCH (08:30)
[2016-09-13] MEDS: Furosemide 20 MG TABLET PO SCH (08:30)
[2016-09-13 08:37] VITALS: BP 124/62
--- NOTE | 2016-09-13 14:47 | Discharge Summary ---
Date of Encounter: 09/13/16 Time of Encounter: 14:35 - Discharge Diagnosis (1) Status post hernia repair Priority: Primary Status: Acute (2) Anemia Priority: Secondary Status: Chronic Qualifiers: Anemia type: B12 deficiency Vitamin B12 deficiency anemia type: unspecified B12 deficiency Qualified Code(s): D51.9 - Vitamin B12 deficiency anemia, unspecified (3) CKD (chronic kidney disease) stage 4, GFR 15-29 ml/min Priority: Secondary Status: Chronic (4) Gout Priority: Secondary Status: Chronic Qualifiers: Gout site: unspecified site Gout etiology: unspecified cause Chronicity: chronic Presence of tophus: without tophus Qualified Code(s): M1A.9XX0 - Chronic gout, unspecified, without tophus (tophi) (5) Hypothyroid Priority: Secondary Status: Chronic Qualifiers: Hypothyroidism type: unspecified Qualified Code(s): E03.9 - Hypothyroidism , unspecified (6) DM type 2 (diabetes mellitus, type 2) Priority: Secondary Status: Acute Qualifiers: Diabetes mellitus complication status: with kidney complications Diabetes mellitus complication detail: with chronic kidney disease Diabetes mellitus correction insulin use: unspecified correction insulin use status Chronic kidney disease stage: stage 4 (severe) Qualified Code(s): E11.22 - Type 2 diabetes mellitus with diabetic chronic kidney disease; N18.4 - Chronic kidney disease, stage 4 (severe) - Discharge Medications Home Medications: GlyBURIDE 5 mg PO BID 07/06/15 [History] Isosorbide MONOnitrate (24 HR) [Imdur] 30 mg PO DAILY 07/06/15 [History] Levothyroxine [Synthroid] 88 mcg PO DAILY 07/06/15 [History] Docusate Sodium [Dok] 100 mg PO BID PRN 03/27/16 [History] Gabapentin [Neurontin] 300 mg PO TID PRN 06/15/16 [History] Pravastatin Sodium 10 mg PO HS 06/15/16 [History] Carvedilol 12.5 mg PO QDPC 08/24/16 [History] Furosemide [Lasix] 20 mg PO QAM 08/24/16 [History] Acetaminophen [Tylenol] 650 mg PO Q6HR PRN #0 tablet 09/03/16 [Rx] Cefdinir [Omnicef] 300 mg PO BID #8 capsule 09/03/16 [Rx] Gentamicin OPTH Soln 1 drop RIGHT EYE QID bottle 09/03/16 [Rx] Metolazone 2.5 mg PO DAILY 09/03/16 [History] OxyCODONE/APAP 5/325 [Percocet 5/325 MG] 1 tab PO Q6HR PRN #8 tablet 09/03/16 [ Rx] Thiamine (B-1) [Vitamin B-1] 100 mg PO DAILY tablet 09/03/16 [Rx] Insulin DETEMIR [Levemir] 7 unit SQ HS 09/06/16 [History] Allergies/Adverse Reactions: Allergies Xvsnray-Xll-Weg Reductase Inhibitor [Statins] Adverse Reaction (Verified 13:24) Muscle Pain Date of admission: 09/03/16 11:48 Primary care physician: PCP NO Consults: 09/03/16 13:17 Consult to Occupational Therapy [CONS] Routine Comment: eval, develop, and implement plan of care Consult to Physical Therapy [CONS] Routine Comment: eval, develop, and implement plan of care Consult to Deputy District Customs Director [CONS] Routine Reason for SW Consult: D/ planning - Patient Status Disposition: Admitted As Inpatient - Discharge Instructions Hospital course: Mr. Rivers is a 71 year old male who was hospitalized at [facility] August 29 after presenting to the emergency room there with complaints of increased testicular and scrotal swelling. He had undergone robotic inguinal hernia repair surgery by Dr. Tidwell on August 24. Dr. Tidwell was consulted but did not think there was significant surgical complications. The patient was admitted to [facility] for altered mental status and pain management. His mental status and swelling improved and he was transferred to [facility] swing bed for ongoing care needs. Initial orders were written by the discharging physicians at [facility]. I saw him on September 04 and performed the swing bed history and physical. He had physical therapy and occupational therapy evaluation with ongoing interventions. He made satisfactory progress in therapy during the swing bed stay. The Winston catheter was removed without complications on September 09 and he was able to void adequately. Uric acid level returned elevated at 11.9 and allopurinol was restarted. He developed significant hypoglycemia with use of Levemir and Amaryl. These were discontinued. On September 13 he left [facility] to go to an office follow-up visit in [place]. He complained of chest discomfort en route and was taken to the [facility] emergency room. He was evaluated and admitted at [facility]. He is being discharged from [facility] swing bed. - Time Spent with Patient Total time spent providing and/or coordinating discharge services: - Constitutional Vitals: Temp Pulse Resp BP Pulse Ox 97.4 F L 60 18 124/62 96 09/13/16 06:00 09/13/16 09:14 09/13/16 09:14 09/13/16 09:14 09/13/16 09:14 - VTE Documentation of Mechanical Device: Graduated compression elastic hosiery
== END 2016-09-13 14:31 | disposition short-term general hospital (02) | DRG 945 ==
LOC: INPPIK 11:48
PROVIDERS: ADMIT Internal Medicine; ATTEND Internal Medicine

== ENCOUNTER 2018-05-09 12:54 | Inpatient (IN) ==
[2018-05-09] MEDS: levoFLOXacin 500 MG TABLET PO SCH (16:34)
[2018-05-09] MEDS: Lactulose Oral Soln 20 GM/30 ML UDC PO PRN (16:36)
[2018-05-10] MEDS: Lactulose Oral Soln 20 GM/30 ML UDC PO PRN (09:35)
[2018-05-10] MEDS: Gabapentin 100 MG CAPSULE PO SCH (09:36)
[2018-05-10] MEDS: Isosorbide MONOnitrate (24 HR) 30 MG TAB.ER.24H PO SCH (09:36)
--- NOTE | 2018-05-10 14:01 | Internal Med History&Physical ---
Date of Encounter: 05/10/18 Time of Encounter: 12:15 Assessment and Plan (1) Pneumonia Current visit: No Status: Acute Continue Levaquin. Add lactobacillus. Qualifiers: Pneumonia type: due to unspecified organism Laterality: right Lung location: unspecified part of lung Qualified Code(s): J18.9 - Pneumonia, unspecified organism (2) Pleural effusion, right Current visit: No Status: Acute Status post thoracentesis at [facility]. Suspect reaccumulation has occurred which is still asymptomatic. (3) Pancytopenia Current visit: No Status: Chronic Likely secondary to cirrhosis primarily. Anemia testing 04/19/2018 showed iron 28, transferrin saturation 17%, transferrin 117, ferritin 349, B12 3 and 23, and folate 9.4. Start ferrous sulfate with vitamin C. (4) Ascites Current visit: No Status: Acute Probably secondary to cryptogenic cirrhosis. He follows at [facility] with evaluation manager. Qualifiers: Ascites type: other type Qualified Code(s): R18.8 - Other ascites Internal Medicine - H&P: HPI Chief complaint: Cirrhosis with ascites Admitted From: Hospital to Hospital Transfer Plans for Post Hospital Care: Home History of present illness: Mr. Rivers is a 73 year old male who was hospitalized at [facility] May 06 after presenting with large right-sided pleural effusion and ascites. Interventional radiology drained 1.15 liters on right thoracentesis and 4 L during paracentesis. No evidence of SBP or empyema noted. He was treated for pneumonia. He was stabilized and admitted to [facility] swing bed for therapy and continuing antibiotic for 6 additional days for pneumonia. Past Med Surg Social Fam HX - Past Medical History Medical history: atrial fibrillation, cancer, CHF, CVA, diabetes, hyperlipidemia, hypertension, myocardial infarction, renal disease, other Additional medical history: thrombocytopenia, renal cancer, stage 4 kindey disease Psychiatric history: no psych history - Past Surgical History Surgical History: coronary bypass (CABG), other, pacemaker Additional surgical history: hernia repair 2017, right nephrectomy - Social History Smoking Status: Former smoker Smokeless Tobacco Status: No Alcohol use: none Drug use: none - Family History Father Living Status: Hx Family Cardiac Disorders: Yes Internal Medicine - H&P: Meds Carvedilol [Coreg] 25 mg PO DAILY 05/06/18 [History] Gabapentin [Neurontin] 100 mg PO DAILY 05/06/18 [History] Insulin Glargine,Hum.rec.anlog [Lantus Solostar] 10 unit SQ 0700 05/06/18 [History] Isosorbide MONOnitrate (24 HR) [Imdur] 30 mg PO DAILY 05/06/18 [History] Lactulose [Enulose] 10 gm PO TID PRN 05/06/18 [History] Levothyroxine [Synthroid] 88 mcg PO 0630 05/06/18 [History] Omeprazole [PriLOSEC] 20 mg PO DAILY 05/06/18 [History] Potassium Chloride [Klor-Con 10] 20 meq PO BID 05/06/18 [History] Pravastatin Sodium 10 mg PO HS 05/06/18 [History] levoFLOXacin [Levaquin] 750 mg PO Q48H #3 tablet 05/09/18 [Rx] Allergy/AdvReac Type Severity Reaction Status Date / Time Aizongc-Axg-Vmf Reductase AdvReac Muscle Pain Verified 05/06/18 11:28 Inhibitor [Statins] All Systems PM: A 10-system review of systems was performed and is negative for pertinent findings except as documented above in the HPI. Review of systems: Review of systems from his August 2016 [facility] swing bed stay were reviewed and revised as below. Gen.: His weight has decreased from 83.752 kg off 09/13/2016 to 64.127 kg on admission now Cardiovascular: He has history of hypertension. He has known ASHD and had multivessel CABG surgery done 2001 [facility]. He has had several MIs in the past with most recent one being 2011. He had a pacemaker placed in 2011 for uncertain diagnosis. An echocardiogram done 09/25/2016 showed LVEF of 50%. There was indeterminate diastolic function. Moderate to severe tricuspid regurgitation was noted. There was severe pulmonary hypertension with estimated RVSP of 61 mmHg. There was LAE at 4.50 cm. The interventricular septum and posterior wall thickness measurements were 1.10 and 1.20 cm respectively. He has not had known DVT or pulmonary emboli. Respiratory: He is a lifelong nonsmoker has no known chronic lung disease GI: Denies disorders of his gallbladder or exocrine pancreas. He has cryptogenic cirrhosis and ascites and had recent paracentesis done at [facility] as per history of present illness. : He has chronic kidney disease and follows with a soap chipper at [facility]. He had right nephrectomy in 2010 for renal cancer. He is presumed cancer free. He had inguinal hernia surgery August 2016. Neurologic: He had a CVA March 2009 with minimal residual deficit. 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 He has diabetic peripheral neuropathy Endocrine: He was diagnosed with DM 2 approximately 2000. He has hypothyroidism but does not have hyperlipidemia. Hematology/oncology: He had right nephrectomy in 2010. He has anemia and thrombocytopenia. He had low B12 level on 03/28/2016 labs at 203 PG/mL which had normalized to a level of 323 on 05/23/2017. Psychiatric: He has no known anxiety depression or other mental health issues Musk skeletal: He has history of gout. - Constitutional Vitals: Temp Pulse Resp BP Pulse Ox 97.6 F 60 16 125/83 95 05/10/18 06:26 05/10/18 06:26 05/10/18 06:26 05/10/18 06:26 05/10/18 13:46 Exam: Gen.: He is a well-developed well-nourished male resting comfortably in bed who appears in no significant distress at present time HEENT: Head is atraumatic and normocephalic. Eyes: EOMI. There is no scleral icterus. Mouth: Mucosa is moist. Neck: Supple and nontender. There is no thyromegaly or adenopathy noted. Heart: Regular with 2/6 systolic murmur heard at the left sternal border. No ectopics are heard. Lungs: He has diminished breath sounds in the right base. The left lung is clear. No wheezes or crackles are heard. Abdomen: He has ascites on percussion of the abdomen. No masses or guarding are noted. Extremities: There is no cyanosis edema or clubbing noted. Dorsalis pedis and posttibial pulses are trace palpable bilaterally. Neurologic: Mental status: He is very hard of hearing and did not speak during examination. Cranial nerves: Smile is symmetric. Forehead wrinkles bilaterally. Tongue protrudes midline. EOMI. Motor: There is no pronator drift. Cerebellar: Finger to nose is intact bilaterally. Skin: Warm and dry
[2018-05-11 06:43] LABS: Calcium 8.6 mg/dL (8.6-10.3); Potassium 5.8 mEq/L (3.5-5.1)
[2018-05-11] MEDS: Isosorbide MONOnitrate (24 HR) 30 MG TAB.ER.24H PO SCH (07:45)
[2018-05-11] MEDS: Gabapentin 100 MG CAPSULE PO SCH (07:46)
--- NOTE | 2018-05-11 12:22 | Internal Med Progress Note ---
Date of Encounter: 05/11/18 Time of Encounter: 12:10 - Assessment and plan (1) Pneumonia Current Visit: No Status: Acute Assessment and plan: May 11. Continue Levaquin and lactobacillus through May 15. Qualifiers: Pneumonia type: due to unspecified organism Laterality: right Lung location: unspecified part of lung Qualified Code(s): J18.9 - Pneumonia, unspecified organism (2) Pleural effusion, right Current Visit: No Status: Acute Assessment and plan: May 11. Status post thoracentesis at [facility] which showed transudate. Suspect reaccumulation of fluid which is still asymptomatic. (3) Pancytopenia Current Visit: No Status: Chronic Assessment and plan: May 11. Suspect secondary to cirrhosis. Rx ferrous sulfate with vitamin C. (4) Ascites Current Visit: No Status: Acute Assessment and plan: May 11. Probably secondary to cryptogenic cirrhosis. Continue follow-up at [facility] with sorter pricer. Qualifiers: Ascites type: other type Qualified Code(s): R18.8 - Other ascites - Subjective Interval history: May 11. He has no new complaints. - Constitutional Vitals: Temp Pulse Resp BP Pulse Ox 97.8 F 71 20 113/66 98 05/11/18 06:14 05/11/18 06:14 05/11/18 06:14 05/11/18 06:14 05/11/18 08:14 Exam: He is resting comfortably in bed and appears in no acute distress. His affect is overall cheerful. He had difficulty remembering his age. He is hard of hearing and minimally conversive. Internal Medicine: Result - Labs CBC & Chem 7: 05/11/18 05:51 Labs: BMP 05/11/18 05:51 Sodium 134 L Potassium 5.8 H Chloride 109 H Carbon Dioxide 18 L BUN 53 H Creatinine 2.55 H Glucose 106 H Calcium 8.6 Consult Discharge Plan - Plan Referrals: NONE,PCP [Primary Care Provider] - 1 week
[2018-05-11] MEDS: levoFLOXacin 500 MG TABLET PO SCH (12:41)
[2018-05-11] MEDS ORDERED: Acetaminophen 325 MG TABLET PO PRN (13:09)
[2018-05-11] MEDS: Lactobacillus 1 EACH CAP.SPRINK PO SCH (19:51)
[2018-05-12] MEDS ORDERED: Ascorbic Acid 500 MG TABLET PO SCH (06:30)
[2018-05-12 08:29] VITALS: BP 127/79
[2018-05-12] MEDS: Gabapentin 100 MG CAPSULE PO SCH (08:30)
[2018-05-12] MEDS: Lactobacillus 1 EACH CAP.SPRINK PO SCH (08:30)
[2018-05-12] MEDS: Isosorbide MONOnitrate (24 HR) 30 MG TAB.ER.24H PO SCH (08:30)
--- NOTE | 2018-05-12 08:54 | Discharge Summary ---
Date of Encounter: 05/12/18 Time of Encounter: 08:44 - Discharge Diagnosis (1) Pneumonia Priority: Primary Status: Acute Qualifiers: Pneumonia type: due to unspecified organism Laterality: right Lung location: unspecified part of lung Qualified Code(s): J18.9 - Pneumonia, unspecified organism (2) Pleural effusion, right Priority: Secondary Status: Acute (3) Pancytopenia Priority: Secondary Status: Chronic (4) Ascites Priority: Secondary Status: Chronic Qualifiers: Ascites type: other type Qualified Code(s): R18.8 - Other ascites Hospital course: Mr. Rivers is a 73 year old male who was hospitalized at [facility] May 06 after presenting with large right-sided pleural effusion and ascites. Interventional radiology drained 1.15 liters on right thoracentesis and 4 L during paracentesis. No evidence of SBP or empyema noted. He was treated for pneumonia. He was stabilized and admitted to [facility] swing bed for therapy and continuing antibiotic for 6 additional days for pneumonia. Initial orders were written by the discharging physicians at [facility]. I saw him on May 10 and performed a history and physical. He continued on oral Levaquin and lactobacillus for pneumonia. PT and OT evaluations were done with ongoing interventions. His expressed she felt his overall condition was gradually declining. I told her I felt the ascites was reaccumulating and there was likely recurrence of his right pleural effusion also. She wished him transferred to a SNF closer to her home in [place]. Arrangements were complete on May 12 to transfer him to [facility]. - Time Spent with Patient Total time spent providing and/or coordinating discharge services: - Discharge Medications Home Medications: Gabapentin [Neurontin] 100 mg PO DAILY 05/06/18 [History] Insulin Glargine,Hum.rec.anlog [Lantus Solostar] 10 unit SQ 0700 05/06/18 [History] Isosorbide MONOnitrate (24 HR) [Imdur] 30 mg PO DAILY 05/06/18 [History] Lactulose [Enulose] 10 gm PO TID PRN 05/06/18 [History] Levothyroxine [Synthroid] 88 mcg PO 0630 05/06/18 [History] Omeprazole [PriLOSEC] 20 mg PO DAILY 05/06/18 [History] Ascorbic Acid [Vitamin C] 500 mg PO 0630 30 Days tablet 10/27/18 [Rx] Carvedilol [Coreg] 25 mg PO DAILY 365 Days #0 05/12/18 [Rx] Ferrous Sulfate 325 mg PO 0630 #0 tablet 05/12/18 [Rx] Lactobacillus [Culturelle] 1 each PO BID 4 Days cap.sprink 05/12/18 [Rx] levoFLOXacin [Levaquin] 750 mg PO Q48H 4 Days tablet 05/12/18 [Rx] Allergies/Adverse Reactions: Allergy/AdvReac Type Severity Reaction Status Date / Time Cbcimut-Htv-Mwx Reductase AdvReac Muscle Pain Verified 05/06/18 11:28 Inhibitor [Statins] Date of admission: 05/09/18 14:46 Primary care physician: PCP NONE Consults: 05/09/18 13:25 Consult to Occupational Therapy [CONS] Routine Comment: Evaluate, develop and implement POC Reason for Consult: Evaluate, develop and implement POC Does patient have active BEDREST order?: No Is patient medically & hemodynamically stable?: Yes Patient assessed for mobility or mobilized this visit?: Yes Consult to Physical Therapy [CONS] Routine Comment: Evaluate, develop and implement POC Reason for Consult: Evaluate, develop and implement POC Does patient have active BEDREST order?: No Is patient medically & hemodynamically stable?: Yes Patient assessed for mobility or mobilized this visit?: Yes 05/09/18 16:06 Consult to Nutrition [CONS] Routine Comment: Consulting Provider: NUTRITION Reason for Dietary Consult: MST Score - Constitutional Vitals: Temp Pulse Resp BP Pulse Ox 97.5 F L 60 18 127/79 100 05/12/18 06:08 05/12/18 08:28 05/12/18 06:08 05/12/18 08:28 05/12/18 08:28 - Patient Status Disposition: Transfer SNF - Discharge Instructions Follow Up With: NONE,PCP [Primary Care Provider] - 1 week - Diet and Activity Activity: as per physical therapy Diet: diabetic diet
== END 2018-05-12 11:38 | DRG 194 ==
LOC: INPPIK 14:46
PROVIDERS: ADMIT Internal Medicine; ATTEND Internal Medicine